=== PATIENT | female | born 1985 | race Caucasian/White ===

== ENCOUNTER 2017-03-26 16:58 | Emergency (ER) | payer MEDICAID ==
[~2017-03-26] VITALS: Ht 160 cm; Wt 100.5 kg
[2017-03-26 17:01] VITALS: Ht 160 cm; Wt 100.5 kg
[2017-03-26] MEDS ORDERED: HYDR-906 PO (17:20)
[2017-03-26] MEDS ORDERED: IBUP-1542 PO (17:20)
--- NOTE | 2017-03-26 17:30 | ERD ---
ER Documentation Chief Complaint Date/Time DATE: 03/26/17 TIME: 17:23 Chief Complaint WOKE UP WITH LT HIP PAIN YESTERDAY , NO TRAUMA HPI Patient is a 31-year-old female who presents to the emergency department for concerns of left hip pain 1 day. Patient states she woke up with left hip pain yesterday. Patient states she has pain when attempting to stand up or sit down. Patient states the pain is localized to her anterior lateral hip. Patient denies any falls or trauma. She does report taking ibuprofen 600 mg earlier today with some relief of symptoms. Patient denies any fevers or chills. Patient is able to bear weight to the affected extremity. Patient denies any previous injuries or fractures. ROS All systems reviewed and are negative except as per history of present illness. Medications Home Meds Active Scripts Hydrocodone/Acetaminophen (Ward 5-325 Tablet) 1 Each Tablet, 1 TAB PO Q6H Y for PAIN, #10 TAB Prov:DIOGENES AMBROSE PA-C 03/26/17 Ibuprofen* (Motrin*) 600 Mg Tab, 600 MG PO Q6, #30 TAB Prov:DIOGENES AMBROSE PA-C 03/26/17 Allergies Allergies: Coded Allergies: No Known Allergies (Verified Allergy, Unknown, 09/21/14) FmHx Family History: No diabetes Physical Exam Vitals Vital Signs Date Time Temp Pulse Resp B/P Pulse Ox O2 Delivery O2 Flow Rate FiO2 03/26/17 17:01 98.2 79 18 144/87 98 Physical Exam GENERAL: Well-developed, well-nourished female. Appears in no acute distress. HEAD: Normocephalic, atraumatic. EYES: Pupils are equally reactive bilaterally. EOMs grossly intact. No conjunctival erythema. NECK: Supple. No meningismus. Normal range of motion of the neck. LUNG: Clear to auscultation bilaterally. No rhonchi, wheezing, rales or coarse breath sounds. HEART: Regular rate and rhythm. No murmurs, rubs or gallops. ABDOMEN: Soft, nontender, and nondistended. Positive bowel sounds in all four quadrants. No rebound tenderness, no guarding. (-) McBurney's point tenderness. No CVA tenderness. HIP: Tender to palpation over the anterior lateral hip. No redness or swelling noted. Pain with extension of the hip. BACK: No midline tenderness. EXTREMITIES: Equal pulses bilaterally. No peripheral clubbing, cyanosis or edema. No unilateral leg swelling. NEUROLOGIC: Alert and oriented. Moving all four extremities without any difficulty. Normal speech. Steady gait. SKIN: Normal color. Warm and dry. No rashes or lesions. Procedures/MDM MEDICAL DECISION MAKING: This is a 31-year-old female presents with left hip pain 1 day. Patient denied any trauma or falls. Vital signs were reviewed. Patient was afebrile. I did offer the patient x-ray imaging of her hip however she declined. Given these findings, the patient's presentation is most consistent with hip bursitis. I have a much lower clinical concern for hip dislocation, pelvic fracture, femur fracture, septic joint, abscess formation. Unable to rule out any ligament or tendon injuries at this time. Patient advised to follow-up with document preparation specialist and/or obtain an MRI on an outpatient basis. PRESCRIPTIONS: Ibuprofen, Ward DISCHARGE: At this time, patient is stable for discharge and outpatient management. RICE therapy and ROM exercises were advised to avoid stiffness. I have instructed the patient to follow-up with his/her primary care physician in 1-2 days. I have discussed with the patient the possibility of needing to see an document preparation specialist for further workup and imaging if the pain persists. I have instructed the patient to promptly return to the ER for any new or worsening symptoms including increased pain, swelling, redness, warmth or fever. The patient and/or family expressed understanding of and agreement with this plan. All questions were answered. Home care instructions were provided. Departure Diagnosis: Primary Impression: Bursitis Bursitis location: hip Hip bursitis location: trochanteric bursitis Laterality: left Qualified Code: M70.62 - Trochanteric bursitis of left hip Condition: Stable Patient Instructions: What Is Bursitis? Referrals: COMM[facility] YOU HAVE RECEIVED A MEDICAL SCREENING EXAM AND THE RESULTS INDICATE THAT YOU DO NOT HAVE A CONDITION THAT REQUIRES URGENT TREATMENT IN THE EMERGENCY DEPARTMENT. FURTHER EVALUATION AND TREATMENT OF YOUR CONDITION CAN WAIT UNTIL YOU ARE SEEN IN YOUR DOCTORS OFFICE WITHIN THE NEXT 1-2 DAYS. IT IS YOUR RESPONSIBILITY TO MAKE AN APPOINTMENT FOR FOLOW-UP CARE. IF YOU HAVE A PRIMARY DOCTOR --you should call your primary doctor and schedule an appointment IF YOU DO NOT HAVE A PRIMARY DOCTOR YOU CAN CALL OUR PHYSICIAN REFERRAL HOTLINE AT IF YOU CAN NOT AFFORD TO SEE A PHYSICIAN YOU CAN CHOSE FROM THE FOLLOWING [facility] CLINICS [facility] [address] [facility] [address] [facility] [address] [facility] [address] [facility] [address] [facility]. [facility]. [address] [facility]. [facility] YOU HAVE RECEIVED A MEDICAL SCREENING EXAM AND THE RESULTS INDICATE THAT YOU DO NOT HAVE A CONDITION THAT REQUIRES URGENT TREATMENT IN THE EMERGENCY DEPARTMENT. FURTHER EVALUATION AND TREATMENT OF YOUR CONDITION CAN WAIT UNTIL YOU ARE SEEN IN YOUR DOCTORS OFFICE WITHIN THE NEXT 1-2 DAYS. IT IS YOUR RESPONSIBILITY TO MAKE AN APPOINTMENT FOR FOLOW-UP CARE. IF YOU HAVE A PRIMARY DOCTOR --you should call your primary doctor and schedule and appointment IF YOU DO NOT HAVE A PRIMARY DOCTOR YOU CAN CALL OUR PHYSICIAN REFERRAL HOTLINE AT . IF YOU CAN NOT AFFORD TO SEE A PHYSICIAN YOU CAN CHOSE FROM THE FOLLOWING [facility]: [facility] [address] [place] [address] [facility] [address] [place] [address] [facility] [address] [place] [address] [facility] Hours: Mon-Fri 9:00 AM - 5:00 PM Additional Instructions: Call your primary care doctor TOMORROW for an appointment during the next 1-2 days.See the doctor sooner or return here if your condition worsens before your appointment time. Unable to rule out any tendon or ligament injuries at this time. Patient advised to follow-up with her primary care physician for referral to an document preparation specialist and/or obtain MRI imaging on an outpatient basis. Ice the affected area. Take anti-inflammatory medications for pain. DIOGENES AMBROSE PA-C Mar 26, 2017 17:30
== END 2017-03-26 17:32 | disposition home or self-care (01) ==
LOC: FTE 16:58
DX: M70.62 Trochanteric bursitis, left hip (principal); Y93.9 Activity, unspecified
CPT/HCPCS: 99283